=== PATIENT | female | born 1985 | race Caucasian/White ===

== ENCOUNTER → 2018-05-14 | Outpatient (CLI) | payer BC ==
--- NOTE | 2018-05-14 15:11 | US ---
EXAMINATION TYPE: US kidneys/renal and bladder DATE OF EXAM: 05/14/2018 COMPARISON: NONE CLINICAL HISTORY: 33-year-old female R31.29 Persistent Microscopic Hematuria. Microscopic hematuria TECHNIQUE: Multiple sonographic images of the kidneys and bladder are obtained. FINDINGS: CLINICAL PHYSICIAN ASSISTANT NOTES: Technical limitations due to large amount of overlying bowel content EXAM MEASUREMENTS: Right Kidney: 11.3 x 5.9 x 5.8 cm Left Kidney: 10.8 x 5.9 x 4.6 cm Right Kidney: possible multiple subtle dense echogenic areas with no obvious shadowing Left Kidney: possible multiple subtle dense echogenic areas with no obvious shadowing Bladder: appears wnl Bilateral Jets seen: yes IMPRESSION: Echogenic areas could represent possible numerous tiny nonobstructive calculi. No hydronephrosis.
== END | disposition home or self-care (01) ==
LOC: RADUSWWP 14:03
PROVIDERS: ATTEND Internal Medicine
DX: R31.29 Other microscopic hematuria (principal)
CPT/HCPCS: 76770

== ENCOUNTER → 2019-09-16 | Outpatient (CLI) | payer BC ==
--- NOTE | 2019-09-16 15:41 | US ---
EXAMINATION TYPE: US kidneys/renal and bladder DATE OF EXAM: 09/16/2019 COMPARISON: 05/14/2018 CLINICAL HISTORY: R31.1. Hematuria EXAM MEASUREMENTS: Right Kidney: 10.9 x 4.9 x 5.7 cm Left Kidney: 10.1 x 5.8 x 5.5 cm Right Kidney: No hydronephrosis or masses seen Left Kidney: Lobulated upper pole measuring 4.0 x 3.1 x 3.3cm question mass vs. Dromedary hump. Bladder: wnl Bilateral Jets seen: Yes There is no evidence for hydronephrosis at this point in time. No nephrolithiasis is seen. The urina ry bladder is anechoic. Bilateral ureteral jets are seen. IMPRESSION: Exophytic solid left midpole mass versus dromedary hump. Three-phase CT abdomen is recomm ended for further characterization.
== END | disposition home or self-care (01) ==
LOC: RADUSWWP 14:36
PROVIDERS: ATTEND Urology
DX: R31.1 Benign essential microscopic hematuria (principal)
CPT/HCPCS: 76770

== ENCOUNTER → 2019-11-05 | Outpatient (CLI) | payer BC ==
--- NOTE | 2019-11-05 09:38 | CT ---
EXAMINATION TYPE: CT abdomen wo/w con DATE OF EXAM: 11/05/2019 COMPARISON: Correlation ultrasound 09/16/2019 HISTORY: 34-year-old female Left renal mass TECHNIQUE: Contiguous axial scanning of the abdomen before and following administration of 100 ml Iso froilan 300 IV contrast. Delayed images through the kidneys and coronal/sagittal reconstructions perform ed. CT DLP: 2032 mGycm Automated exposure control for dose reduction was used. FINDINGS: The heart is normal size without pericardial effusion. Mild dependent atelectasis lung bases without pleural effusion. No focal liver lesion or biliary ductal dilatation. Portal venous system is patent. Gallbladder, adrenal glands, spleen, and pancreas appear within normal limits. Kidneys show no evidence for nephrolithiasis or hydronephrosis. There is a dromedary hump noted along the lateral aspect of the left kidney which seems to correspond to the 09/16/2019 ultrasound findings. No dilated small bowel, free fluid, or free air. A short segment of a normal appendix is visualized. Mild to moderate stool burden. No pericolonic inflammatory change. No mesenteric or retroperitoneal lymphadenopathy. Bones: Bulging disc at L4-L5. IMPRESSION: 1. NO NEPHROLITHIASIS OR HYDRONEPHROSIS. 2. THE QUESTIONED 09/16/2019 ULTRASOUND FINDING SEEMS TO CORRESPOND TO A DROMEDARY HUMP ALONG THE LAT ERAL ASPECT OF THE LEFT KIDNEY RATHER THAN A RENAL MASS. GIVEN THE DISTINCT ULTRASOUND APPEARANCE, 6- 12 MONTH FOLLOW-UP RENAL ULTRASOUND RECOMMENDED A PRECAUTIONARY MEASURE.
== END | disposition home or self-care (01) ==
LOC: RADCTMAIN 07:56
PROVIDERS: ATTEND Urology
DX: D41.02 Neoplasm of uncertain behavior of left kidney (principal)
CPT/HCPCS: 74170; Q9967

== ENCOUNTER → 2020-05-19 | Outpatient (CLI) | payer BC ==
--- NOTE | 2020-05-19 13:37 | US ---
EXAMINATION TYPE: US kidneys/renal and bladder DATE OF EXAM: 05/19/2020 COMPARISON: NONE CLINICAL HISTORY: N28.89 disorders of kidney and ureter. proteinuria, follow up from prior ultrasound and CT EXAM MEASUREMENTS: Right Kidney: 11.1 x 5.0 x 5.1 cm Left Kidney: 10.3 x 5.4 x 5.1 cm Right Kidney: No evidence of hydronephrosis or mass Left Kidney: lobulated area upper/mid as seen on prior exam, ?dromedary hump Bladder: appears wnl Bilateral Jets seen: yes There is no evidence for hydronephrosis at this point in time. No nephrolithiasis is seen. No chayo s are identified. The urinary bladder is anechoic. Bilateral ureteral jets are seen. IMPRESSION: Unremarkable kidneys
== END | disposition home or self-care (01) ==
LOC: RADUSWWP 12:09
PROVIDERS: ATTEND Family Medicine
DX: N28.89 Other specified disorders of kidney and ureter (principal)
CPT/HCPCS: 76770

== ENCOUNTER → 2020-12-16 | Outpatient (CLI) | payer BC ==
--- NOTE | 2020-12-16 14:40 | US ---
EXAMINATION TYPE: US kidneys/renal and bladder DATE OF EXAM: 12/16/2020 COMPARISON: US & CT CLINICAL HISTORY: R31.9 hematuria. Pt states chronic hematuria, F/U left kidney dromedary hump EXAM MEASUREMENTS: Right Kidney: 11.2 x 5.3 x 5.7 cm Left Kidney: 10.5 x 6.3 x 5.5 cm Excessive overlying bowel gas limiting views Right Kidney: Appeared wnl Left Kidney: Appeared wnl, dromedary hump visualized Bladder: wnl Bilateral Jets seen: Yes There is no evidence for hydronephrosis at this point in time. No nephrolithiasis is seen. No chayo s are identified. The urinary bladder is anechoic. Bilateral ureteral jets are seen. 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 Otherwise unremarkable study.
== END | disposition home or self-care (01) ==
LOC: RADUSWWP 13:42
PROVIDERS: ATTEND Family Medicine
DX: R31.9 Hematuria, unspecified (principal)
CPT/HCPCS: 76770

== ENCOUNTER → 2023-08-19 | Outpatient (CLI) | payer BC ==
--- NOTE | 2023-08-21 08:38 | MM ---
Reason for Exam: Screening (asymptomatic). Baseline mammogram. Patient History: Menarche at age 10. First Full-Term at age 20. 2011, Excisional Biopsy on the Right side. Last menstrual period: 08/05/2023 Risk Values: Linnea 5 year model risk: 0.8%. NCI Lifetime model risk: 12.1%. Prior Study Comparison: Patient's first Mammogram. Tissue Density: There are scattered fibroglandular densities. Findings: Analyzed By CAD. Nodular density left breast centrally 5.6 cm from the nipple. Ultrasound recommended. Benign calcification right breast. No suspicious calcifications seen. Overall Assessment: Incomplete: need additional imaging evaluation, BI-RAD 0 Management: Diagnostic Breast Ultrasound of the left breast. . Patient should continue monthly self-breast exams. A clinical breast exam by your physician is recommended on an annual basis. This exam should not preclude additional follow-up of suspicious palpable abnormalities. Note on Linnea scores and lifetime risk: 1. A Linnea score greater than 3% is considered moderate risk. If this is the case, consider specialist referral to assess eligibility for a risk reducing agent. 2. If overall lifetime risk for the development of breast cancer is 20% or higher, the patient may qualify for future screening with alternating mammogram and breast MRI. Electronically signed and approved by: Sunday Blair M.D. Radiologis
== END | disposition home or self-care (01) ==
LOC: RADMAMWWP 14:13
PROVIDERS: ATTEND Obstetrics & Gynecology
DX: Z12.31 Encounter for screening mammogram for malignant neoplasm of breast (principal)
CPT/HCPCS: 77067

== ENCOUNTER → 2023-08-26 | Outpatient (CLI) | payer BC ==
--- NOTE | 2023-08-26 13:45 | USB ---
Reason for Exam: Additional evaluation requested from abnormal screening. Patient History: Menarche at age 10. First Full-Term at age 20. 2012, Excisional Biopsy on the Right side. Risk Values: Linnea 5 year model risk: 0.8%. NCI Lifetime model risk: 12.1%. Technique: Method: Targeted. Prior Study Comparison: 08/19/2023 Bilateral MG screening mammo w CAD, [facility]. Findings: The upper inner quadrant of the left breast, the axilla of the left breast and the retroareolar of the left breast were scanned. Technique utilized:US breast workup limited LT Image; Ultrasound imaging of: Area of concern, retroareolar region and axilla. No evidence for organizing fluid collection or mass. Overall Assessment: Negative, BI-RAD 1 Management: Screening Mammogram of both breasts in 1 year. A clinical breast exam by your physician is recommended on an annual basis and results should be correlated with mammographic findings. This exam should not preclude additional follow-up of suspicious palpable abnormalities. Results were given to the patient verbally at the time of exam. Electronically signed and approved by: Mele Bales DO
== END | disposition home or self-care (01) ==
LOC: RADUSWWP 12:46
PROVIDERS: ATTEND Obstetrics & Gynecology
DX: R92.8 Other abnormal and inconclusive findings on diagnostic imaging of breast (principal)

== ENCOUNTER → 2023-10-04 | Outpatient (CLI) | payer BC ==
--- NOTE | 2023-10-05 18:38 | US ---
EXAMINATION TYPE: US kidneys/renal and bladder DATE OF EXAM: 10/04/2023 COMPARISON: 12/16/2020 CLINICAL INDICATION: Female, 38 years old with history of M89.9 DISORDER OF BONE, UNSPECIFIED; Patien t states having protein in the urine. Hx dromedary hump left kidney. EXAM MEASUREMENTS: Right Kidney: 11.5 x 5.3 x 6.5 cm Left Kidney: 11.0 x 5.0 x 6.1 cm Post Void Residual Volume: 29.0 mL Right Kidney: No hydronephrosis or masses seen Left Kidney: No hydronephrosis or masses seen Bladder: distended, anechoic Bilateral Jets seen Normal Post Void Residual IMPRESSION: 1. Normal renal ultrasound
== END | disposition home or self-care (01) ==
LOC: RADUSWWP 16:04
PROVIDERS: ATTEND Internal Medicine Nephrology
DX: R80.9 Proteinuria, unspecified (principal); M89.9 Disorder of bone, unspecified
CPT/HCPCS: 76770

== ENCOUNTER → 2023-10-08 | Outpatient (CLI) | payer BC ==
[2023-10-08 11:22] LABS: Basophils # (A) 0.1 k/uL (0-0.2); Basophils % (A) 1 %; Eosinophils # (A) 0.1 k/uL (0-0.7); Eosinophils % (A) 2 %; HCT 47.1 % (34.0-46.0); Lymphocytes # (A) 1.9 k/uL (1.0-4.8); Lymphocytes % (A) 35 %; MCH 33.1 pg (25.0-35.0); MCV 97.3 fL (80.0-100.0); Mean Platelet Volume 7.7; Monocytes # (A) 0.3 k/uL (0-1.0); Monocytes % (A) 5 %; Neutrophils # (A) 3.1 k/uL (1.3-7.7); Neutrophils % (A) 55 %; Platelet Count 191 k/uL (150-450); RBC 4.84 m/uL (3.80-5.40); RDW 11.9 % (11.5-15.5); WBC 5.6 k/uL (3.8-10.6)
[2023-10-08 11:33] LABS: African American GFR (CKD) >90 (>60 ml/min/1.73 sqM); Anion Gap 10 mmol/L; Blood Urea Nitrogen 12 mg/dL (7-17); Carbon Dioxide 24 mmol/L (22-30); Chloride 105 mmol/L (98-107); Non-African American GFR(CKD) >90 (>60 ml/min/1.73 sqM); Sodium 139 mmol/L (137-145)
[2023-10-08 11:34] LABS: INR 0.9 (<1.2); Partial Thromboplastin Time 23.1 sec (22.0-30.0); Prothrombin Time 10.4 sec (10.0-12.5)
== END | disposition home or self-care (01) ==
LOC: LABWHC1 09:55
PROVIDERS: ATTEND Internal Medicine
DX: R80.9 Proteinuria, unspecified (principal)
CPT/HCPCS: 36415; 80051; 82565; 84520; 85025; 85610; 85730; 86850; 86900; 86901

== ENCOUNTER 2023-10-10 07:57 | Day surgery (SDC) | payer BC ==
[2023-10-10] MEDS ORDERED: DESMOPRESSIN ACETATE 24 MCG in SODIUM CHLORIDE 0.9% 50 ML IVPB STA (08:23)
[2023-10-10] MEDS ORDERED: HYDROmorphone 0.5 MG/0.5 ML SYRINGE IVP PRN (08:25)
[2023-10-10] MEDS ORDERED: ALPRAZolam 0.5 MG TAB PO PRN (08:25)
[2023-10-10 09:01] VITALS: TEMP 97.5
[2023-10-10 11:26] VITALS: RESP 16
--- NOTE | 2023-10-10 15:15 | CT ---
EXAMINATION TYPE: CT biopsy renal RT DATE OF EXAM: 10/10/2023 COMPARISON: NONE HISTORY: Proteinuria CT DLP: 3252 mGycm The procedure was explained to the patient. The risks, complications, benefits, and alternatives wer e discussed and any questions were answered. Informed consent was obtained. Patient was placed pron e on the CT table and prepped and draped in the usual sterile fashion. Utilizing CT guidance, an 18 gauge core biopsy needle access into the right renal cortex was achieved and three 18 gauge core samples were obtained. The patient was stable throughout the procedure and remained stable upon discharge. IMPRESSION: Successful 18 gauge core biopsy of the kidney function.
[2023-10-10 15:26] VITALS: BP 130/70; PULSE 54
== END 2023-10-10 14:40 | disposition home or self-care (01) ==
LOC: RADPROMAIN 07:57
PROVIDERS: ATTEND Internal Medicine Nephrology
DX: R80.9 Proteinuria, unspecified (principal); F10.90 Alcohol use, unspecified, uncomplicated; F17.210 Nicotine dependence, cigarettes, uncomplicated
CPT/HCPCS: 36415; 50200; 77012; J2597; J1170

== ENCOUNTER → 2025-03-02 | Outpatient (CLI) | payer BC ==
--- NOTE | 2025-03-02 16:13 | CT ---
EXAMINATION TYPE: CT chest w con DATE OF EXAM ORDERED: 03/02/2025 CLINICAL INDICATION: Female, 39 years old with history of R07.89 CHEST PAIN G89.29 CHRONIC PAIN, CT DLP: [address] CTDI: mGy Automated exposure control for dose reduction was used. Comparison: None TECHNIQUE: Multiple axial images obtained thorax following the contrast. FINDINGS: There is a 4 mm nodule in the right upper lobe. There is a small calcified granuloma in the left uppe r lobe. There is no airspace consolidation. There is no abnormal interstitial density. There is no mediastinal, hilar or axillary adenopathy. There is no pleural effusion, pleural thickening or pneumothorax. No focal osseous lesions are seen. Limited scans the upper abdomen reveals no gross abnormality IMPRESSION: 1. No acute cardiopulmonary disease. 2. 4 mm nodule right upper lobe and small granuloma left upper lobe. [facility], , 03/02/2025 4:11 PM
== END | disposition home or self-care (01) ==
LOC: RADCTMAIN 15:09
PROVIDERS: ATTEND Family Medicine
DX: J84.10 Pulmonary fibrosis, unspecified (principal); R91.1 Solitary pulmonary nodule; G89.29 Other chronic pain
CPT/HCPCS: 71260; Q9967